=== PATIENT | male | born 1930 | race Caucasian/White ===

== ENCOUNTER 2018-10-02 09:26 | Inpatient (IN) ==
[2018-10-02 11:17] LABS: Basophils % 0.3 % (0.0-0.8); Eosinophils # 0.1 10*3/uL (0.0-0.87); Eosinophils % 0.3 % (0.00-10.9); Hematocrit 41.7 VOL% (42.0-52.0); Hemoglobin 13.1 GM/DL (14.0-18.0); Immature Granulocytes % 0.3 %; Immature Granulocytes Absolute 0.05 #; Lymphocytes # 0.8 10*3/uL (1.4-4.0); Lymphocytes % 5.5 % (21.2-54.2); Mean Corpuscular HGB Conc 31.4 GM/DL (32-36); Mean Corpuscular Volume 105.3 FL (87-102); Mean Platelet Volume 11.6 FL (9.6-12.0); Neutrophils % 87.6 % (38.7-73.9); Platelet Count 113 T/CUMM (130-400); Red Blood Count 3.96 MC/CUMM (3.8-5.5); Red Cell Distribution Width 13.1 % (9.3-17.3); White Blood Count 14.3 T/CUMM (4-12)
[2018-10-02 11:25] LABS: INR 0.9; PT Patient Result 10.1 SECS
[2018-10-02 11:35] LABS: Alanine Aminotransferase 22 U/L (16-61); Albumin 3.7 G/DL (3.4-5.0); Alkaline Phosphatase 103 U/L (45-117); Aspartate Amino Transferase 31 U/L (0-37); Blood Urea Nitrogen 20 MG/DL (7-18); Calcium 9.1 MG/DL (8.5-10.1); Glucose 135 MG/DL (74-106); Total Protein 7.4 G/DL (6.4-8.3)
[2018-10-02 11:40] LABS: Platelet Estimate Adequate
[2018-10-02 11:41] LABS: Anisocytosis Slight; Macrocytosis 1+
[2018-10-02] MEDS ORDERED: ONDANSETRON 4 MG/2 ML VIAL IV PRN (14:36)
[2018-10-02] MEDS ORDERED: DEXTROSE 50% 25 GM/50 ML VIAL IV PRN (14:36)
[2018-10-02] MEDS ORDERED: GLUCAGON 1 MG VIAL IM PRN (14:36)
[2018-10-02] MEDS ORDERED: ACETAMINOPHEN 325 MG TABLET PO PRN (14:36)
[2018-10-02] MEDS ORDERED: diphenhydrAMINE CAP 25 MG CAPSULE PO PRN (14:36)
[2018-10-02] MEDS ORDERED: DEXTROSE 10% 250 ML BAG IV PRN (14:36)
[2018-10-02] MEDS ORDERED: DICYCLOMINE 20 MG TABLET PO PRN (14:54)
[2018-10-02] MEDS: SODIUM CHLORIDE 0.9% 1,000 ML IV SCH (15:04)
[2018-10-02 15:11] LABS: Risk Ratio 2.46; VLDL CHOLESTEROL 17.8 MG/DL
[2018-10-02] MEDS: INSULIN REGULAR 100 UNIT/ML SUBCUT SCH ×2 (16:44→20:14)
[2018-10-02] MEDS: GLIMEPIRIDE 2 MG TABLET PO SCH (16:46)
[2018-10-02] MEDS: PANTOPRAZOLE 40 MG TABLET PO SCH ×2 (16:46→20:14)
[2018-10-02 16:51] LABS: Apearance,Urine CLEAR (Clear); Bacteria,Urine Occasional /HPF (Few); Bilirubin,Urine Negative (Negative); Blood, Urine Small mg/dL (Negative); Glucose,Urine (UA) Negative (Negative); Ketones,Urine Negative (Negative); Mucus,Urine Occasional /LPF (Occasional); Nitrite,Urine Negative (Negative); Protein,Urine Negative; RBC,Urine 3 /HPF (0-4); Squamous Epithelial Cell,Urine Occasional /HPF (0-10); Urine Color Yellow (Yellow); Urine Specific Gravity 1.059 (1.001-1.035); Urine Urobilinogen < 2.0 EU/DL (0.2-1.0); WBC,Urine 1 /HPF (0-6)
[2018-10-02] MEDS ORDERED: CARVEDILOL 6.25 MG TABLET PO ONE (17:42)
[2018-10-02] MEDS ORDERED: ASPIRIN 325 MG TABLET PO ONE (17:44)
[2018-10-02] MEDS: ENOXAPARIN 60 MG/0.6 ML SYRINGE SUBCUT SCH (18:01)
[2018-10-02] MEDS: LATANOPROST 0.005% OPH SOLN 2.5 ML BOTTLE BOTH EYES SCH (20:14)
[2018-10-02] MEDS: SIMVASTATIN 20 MG TABLET PO SCH (20:14)
[2018-10-02] MEDS: TIMOLOL 0.5% OPH SOLN 5 ML BOTTLE BOTH EYES SCH (20:14)
[2018-10-02] MEDS: CARVEDILOL 3.125 MG TABLET PO SCH (23:34)
[2018-10-03 05:44] LABS: Basophils % 0.3 % (0.0-0.8); Eosinophils % 0.5 % (0.00-10.9); Hematocrit 33.9 VOL% (42.0-52.0); Hemoglobin 10.8 GM/DL (14.0-18.0); Immature Granulocytes % 0.4 %; Immature Granulocytes Absolute 0.03 #; Lymphocytes # 1.9 10*3/uL (1.4-4.0); Lymphocytes % 23.9 % (21.2-54.2); Mean Corpuscular HGB Conc 31.9 GM/DL (32-36); Mean Platelet Volume 11.9 FL (9.6-12.0); Monocytes % 9.4 % (1.7-12.7); Neutrophils % 65.5 % (38.7-73.9); Platelet Count 95 T/CUMM (130-400); Red Blood Count 3.23 MC/CUMM (3.8-5.5); Red Cell Distribution Width 13.3 % (9.3-17.3); White Blood Count 7.8 T/CUMM (4-12)
[2018-10-03] MEDS: ENOXAPARIN 60 MG/0.6 ML SYRINGE SUBCUT SCH ×2 (05:57→17:24)
[2018-10-03 06:00] LABS: Calcium 8.5 MG/DL (8.5-10.1); Osmolality,Calculated 283.1 MOS/KG (273-304)
[2018-10-03 06:10] LABS: Eosinophils 1 % (0-10); Hypochromasia 1+; Lymphocytes 25 % (20-55); Platelet Estimate Decreased; Segmented Neutrophils 64 % (50-85); Total Cells Counted 100
[2018-10-03 06:11] LABS: Macrocytosis Slight
[2018-10-03] MEDS ORDERED: MAGNESIUM SULF RIDER 2 GM in PREMIX 1 EACH IV PRN ×2 (07:28→14:52)
[2018-10-03] MEDS ORDERED: MAGNESIUM SULF RIDER 4 GM in PREMIX 1 EACH IV PRN (07:28)
[2018-10-03] MEDS ORDERED: ASPIRIN EC 81 MG TABLET PO SCH (09:00)
[2018-10-03] MEDS ORDERED: ASPIRIN 325 MG TABLET PO ONE (09:00)
[2018-10-03] MEDS: LISINOPRIL 5 MG TABLET PO SCH (09:21)
[2018-10-03] MEDS: CETIRIZINE 10 MG TABLET PO SCH (09:21)
[2018-10-03] MEDS: MECLIZINE 25 MG TABLET PO SCH (09:21)
[2018-10-03] MEDS: PANTOPRAZOLE 40 MG TABLET PO SCH ×3 (09:22→21:44)
[2018-10-03] MEDS: MULTIVITAMIN (CENTRUM) TABLET PO SCH (09:22)
[2018-10-03] MEDS: CARVEDILOL 3.125 MG TABLET PO SCH (09:23)
[2018-10-03] MEDS: INSULIN REGULAR 100 UNIT/ML SUBCUT SCH ×4 (09:26→21:44)
[2018-10-03] MEDS: TIMOLOL 0.5% OPH SOLN 5 ML BOTTLE BOTH EYES SCH ×2 (09:28→21:44)
[2018-10-03] MEDS: SODIUM CHLORIDE 0.9% 1,000 ML IV SCH (12:41)
[2018-10-03] MEDS ORDERED: POTASSIUM CHLORIDE RIDER 10 MEQ in PREMIX 1 EACH IV PRN (14:52)
[2018-10-03] MEDS: GLIMEPIRIDE 2 MG TABLET PO SCH (17:20)
[2018-10-03] MEDS: SIMVASTATIN 20 MG TABLET PO SCH (21:44)
[2018-10-03] MEDS: LATANOPROST 0.005% OPH SOLN 2.5 ML BOTTLE BOTH EYES SCH (21:49)
[2018-10-04 04:51] LABS: Basophils % 0.3 % (0.0-0.8); Eosinophils # 0.1 10*3/uL (0.0-0.87); Hematocrit 35.3 VOL% (42.0-52.0); Hemoglobin 11.2 GM/DL (14.0-18.0); Immature Granulocytes % 0.5 %; Immature Granulocytes Absolute 0.03 #; Lymphocytes # 1.9 10*3/uL (1.4-4.0); Lymphocytes % 30.9 % (21.2-54.2); Mean Corpuscular HGB Conc 31.7 GM/DL (32-36); Mean Corpuscular Volume 105.7 FL (87-102); Mean Platelet Volume 11.9 FL (9.6-12.0); Monocytes % 8.5 % (1.7-12.7); Neutrophils % 57.8 % (38.7-73.9); Platelet Count 99 T/CUMM (130-400); Red Blood Count 3.34 MC/CUMM (3.8-5.5); Red Cell Distribution Width 13.2 % (9.3-17.3); White Blood Count 6.1 T/CUMM (4-12)
[2018-10-04 05:12] LABS: Hypochromasia Slight; Macrocytosis Slight; Platelet Estimate Decreased
[2018-10-04 05:15] LABS: Calcium 8.5 MG/DL (8.5-10.1); Osmolality,Calculated 284.1 MOS/KG (273-304)
[2018-10-04] MEDS: ENOXAPARIN 60 MG/0.6 ML SYRINGE SUBCUT SCH (06:09)
[2018-10-04] MEDS: INSULIN REGULAR 100 UNIT/ML SUBCUT SCH ×4 (08:28→20:48)
[2018-10-04] MEDS: GLUCAGON 1 MG VIAL IM PRN (08:30)
[2018-10-04] MEDS ORDERED: DIAZEPAM 5 MG TABLET PO ONE (09:00)
[2018-10-04] MEDS ORDERED: LIDOCAINE 1%/EPI INJ 20 ML VIAL ONE (09:00)
[2018-10-04] MEDS ORDERED: HEPARIN/NACL 0.9% 2 UNITS/ML 1,000 ML IV ONE (09:00)
[2018-10-04] MEDS ORDERED: diphenhydrAMINE CAP 25 MG CAPSULE PO ONE (09:00)
[2018-10-04] MEDS: MECLIZINE 25 MG TABLET PO SCH (09:06)
[2018-10-04] MEDS: MULTIVITAMIN (CENTRUM) TABLET PO SCH (09:07)
[2018-10-04] MEDS: CETIRIZINE 10 MG TABLET PO SCH (09:08)
[2018-10-04] MEDS: LISINOPRIL 5 MG TABLET PO SCH (09:13)
[2018-10-04] MEDS: SODIUM CHLORIDE 0.9% 1,000 ML IV SCH (09:23)
[2018-10-04] MEDS ORDERED: fentaNYL 100 MCG/2 ML VIAL ONE (09:45)
[2018-10-04] MEDS ORDERED: MIDAZOLAM 2 MG/2 ML VIAL ONE (09:46)
[2018-10-04] MEDS ORDERED: amLODIPine 5 MG TABLET PO ONE (10:30)
[2018-10-04] MEDS: PANTOPRAZOLE 40 MG TABLET PO SCH ×3 (14:07→20:49)
[2018-10-04] MEDS: GLIMEPIRIDE 2 MG TABLET PO SCH (17:09)
[2018-10-04] MEDS: SIMVASTATIN 20 MG TABLET PO SCH (20:48)
[2018-10-04] MEDS: LATANOPROST 0.005% OPH SOLN 2.5 ML BOTTLE BOTH EYES SCH (20:49)
[2018-10-05 05:01] LABS: Basophils % 0.4 % (0.0-0.8); Eosinophils # 0.1 10*3/uL (0.0-0.87); Eosinophils % 1.8 % (0.00-10.9); Hematocrit 33.8 VOL% (42.0-52.0); Hemoglobin 10.9 GM/DL (14.0-18.0); Immature Granulocytes % 0.2 %; Immature Granulocytes Absolute 0.01 #; Lymphocytes # 1.4 10*3/uL (1.4-4.0); Lymphocytes % 26.2 % (21.2-54.2); Mean Corpuscular HGB Conc 32.2 GM/DL (32-36); Mean Corpuscular Volume 104.3 FL (87-102); Mean Platelet Volume 11.9 FL (9.6-12.0); Monocytes % 10.2 % (1.7-12.7); Neutrophils % 61.2 % (38.7-73.9); Platelet Count 89 T/CUMM (130-400); Red Blood Count 3.24 MC/CUMM (3.8-5.5); Red Cell Distribution Width 13.1 % (9.3-17.3); White Blood Count 5.5 T/CUMM (4-12)
[2018-10-05] MEDS: SODIUM CHLORIDE 0.9% 1,000 ML IV SCH (05:17)
[2018-10-05 05:22] LABS: Hypochromasia 1+; Platelet Estimate Decreased
[2018-10-05 05:23] LABS: Macrocytosis Slight
[2018-10-05 05:37] LABS: Calcium 8.3 MG/DL (8.5-10.1); Osmolality,Calculated 289.6 MOS/KG (273-304)
[2018-10-05] MEDS: CLOPIDOGREL 75 MG TABLET PO SCH (08:43)
[2018-10-05] MEDS: MULTIVITAMIN (CENTRUM) TABLET PO SCH (08:43)
[2018-10-05] MEDS: CETIRIZINE 10 MG TABLET PO SCH (08:44)
[2018-10-05] MEDS: LISINOPRIL 5 MG TABLET PO SCH (08:44)
[2018-10-05] MEDS: PANTOPRAZOLE 40 MG TABLET PO SCH ×3 (08:44→20:44)
[2018-10-05] MEDS: MECLIZINE 25 MG TABLET PO SCH (08:44)
[2018-10-05] MEDS: ASPIRIN EC 81 MG TABLET PO SCH (08:44)
[2018-10-05] MEDS: INSULIN REGULAR 100 UNIT/ML SUBCUT SCH ×4 (08:58→20:36)
[2018-10-05] MEDS ORDERED: amLODIPine 5 MG TABLET PO SCH (09:00)
[2018-10-05] MEDS ORDERED: ceFAZolin 1,000 MG in SYRINGE 1 EACH IV ONE (12:00)
[2018-10-05] MEDS: GLUCAGON 1 MG VIAL IM PRN ×3 (12:35→20:19)
[2018-10-05] MEDS: GLIMEPIRIDE 2 MG TABLET PO SCH (17:02)
[2018-10-05] MEDS ORDERED: HEPARIN/NACL 0.9% 2 UNITS/ML 1,000 ML IV ONE (17:15)
[2018-10-05] MEDS ORDERED: LIDOCAINE 1% 20 ML VIAL ONE (17:15)
[2018-10-05] MEDS ORDERED: MIDAZOLAM 2 MG/2 ML VIAL ONE (17:16)
[2018-10-05] MEDS ORDERED: fentaNYL 100 MCG/2 ML VIAL ONE (17:16)
[2018-10-05] MEDS ORDERED: HEPARIN 5,000 UNIT/1 ML VIAL ONE (17:24)
[2018-10-05] MEDS: SIMVASTATIN 20 MG TABLET PO SCH (20:42)
[2018-10-05] MEDS: LATANOPROST 0.005% OPH SOLN 2.5 ML BOTTLE BOTH EYES SCH (20:43)
[2018-10-06] MEDS: SODIUM CHLORIDE 0.9% 1,000 ML IV SCH (00:26)
[2018-10-06 05:10] LABS: Basophils % 0.4 % (0.0-0.8); Eosinophils # 0.1 10*3/uL (0.0-0.87); Eosinophils % 2.4 % (0.00-10.9); Hematocrit 34.2 VOL% (42.0-52.0); Hemoglobin 11.1 GM/DL (14.0-18.0); Immature Granulocytes % 0.2 %; Immature Granulocytes Absolute 0.01 #; Lymphocytes # 1.2 10*3/uL (1.4-4.0); Lymphocytes % 23.4 % (21.2-54.2); Mean Corpuscular HGB Conc 32.5 GM/DL (32-36); Mean Corpuscular Volume 103.6 FL (87-102); Mean Platelet Volume 12.3 FL (9.6-12.0); Monocytes % 11.4 % (1.7-12.7); Neutrophils % 62.2 % (38.7-73.9); Platelet Count 90 T/CUMM (130-400); Red Cell Distribution Width 12.8 % (9.3-17.3)
[2018-10-06 05:32] LABS: Eosinophils 3 % (0-10); Hypochromasia 1+; Lymphocytes 21 % (20-55); Macrocytosis Slight; Platelet Estimate Decreased; Segmented Neutrophils 68 % (50-85); Total Cells Counted 100
[2018-10-06 06:02] LABS: Calcium 8.2 MG/DL (8.5-10.1); Calcium 8.5 MG/DL (8.5-10.1); Osmolality,Calculated 283.1 MOS/KG (273-304); Osmolality,Calculated 284.1 MOS/KG (273-304)
[2018-10-06] MEDS ORDERED: METOPROLOL SUCCINATE XL 25 MG TABLET PO SCH (09:00)
[2018-10-06] MEDS: LISINOPRIL 5 MG TABLET PO SCH (09:34)
[2018-10-06] MEDS: MECLIZINE 25 MG TABLET PO SCH (09:34)
[2018-10-06] MEDS: MULTIVITAMIN (CENTRUM) TABLET PO SCH (09:34)
[2018-10-06] MEDS: CETIRIZINE 10 MG TABLET PO SCH (09:35)
[2018-10-06] MEDS: CLOPIDOGREL 75 MG TABLET PO SCH (09:35)
[2018-10-06] MEDS: PANTOPRAZOLE 40 MG TABLET PO SCH ×2 (09:37→09:39)
[2018-10-06] MEDS: ASPIRIN EC 81 MG TABLET PO SCH (09:37)
[2018-10-06] MEDS: INSULIN REGULAR 100 UNIT/ML SUBCUT SCH ×2 (09:40→13:01)
[2018-10-06 13:41] VITALS: BP 126/67
== END 2018-10-06 14:15 | disposition home health service (06) | DRG 228 ==
LOC: N.ED 09:26 → N.TELES 09:26 → SUATTDRO 12:25 → N.TELES 15:40
PROVIDERS: ADMIT Internal Medicine; ATTEND Internal Medicine Geriatric Medicine
PROC: CLMICRA (2018-10-05 13:15)